=== PATIENT | male | born 1980 | race Caucasian/White ===

== ENCOUNTER 2019-01-24 06:35 | Day surgery (SDC) | payer OTHER ==
[~2019-01-24 06:35] MED LIST: Buffered Lidocaine 1% SYRIN* 1 ML/SYRINGE INTRADERM ONE; Lactated Ringers 1000 ML Bag* 1,000 ML IV SCH
[2019-01-24] MEDS ORDERED: Bupivacaine 0.25% SDV* 30 ML ONE (09:45)
[2019-01-24] MEDS ORDERED: ceFAZolin 2 GM in NS PREMIX(*) 2 GM/100 ML BAG IVPB ONE (09:49)
[2019-01-24] MEDS ORDERED: Midazolam* 1 MG/ML 5 ML VIAL (5 MG) ONE (09:54)
[2019-01-24] MEDS ORDERED: fentaNYL* 50 MCG/ML 2 ML VIAL (100 MCG VIAL) ONE (09:55)
[2019-01-24] MEDS ORDERED: Naloxone* 0.4 MG/ML 1 ML VIAL IV PRN (10:42)
[2019-01-24 11:40] VITALS: BP 108/73
--- NOTE | 2019-01-24 12:54 | OP ---
DATE OF OPERATION: 01/24/19 - [facility] DATE OF : 76 SURGEON: Kameron Grijalva MD. PATIENT'S LIBRARIAN: KEN Dexter. ANESTHESIOLOGIST: Dr. Mayfield. ANESTHESIA: Local MAC. PRE-OP DIAGNOSIS: Right volar wrist ganglion cyst. POST-OP DIAGNOSIS: Right volar wrist ganglion cyst. OPERATIVE PROCEDURE: Excision of right volar wrist ganglion cyst. 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 INDICATIONS: Nigel has a volar wrist ganglion cyst. It is large and symptomatic. He want to have it excised. We discussed the risks and benefits including the risk of radial artery injury. He understood this, he wished to proceeded. ESTIMATED BLOOD LOSS: 2 mL. COMPLICATIONS: None. FINDINGS: See above and below. DESCRIPTION OF PROCEDURE: Nigel was seen in the preoperative holding area. The correct side, site, and procedure were identified. We came back to the operating room where the arm was prepped and draped in the usual fashion and time-out was performed. The arm was exsanguinated with the Esmarch and the tourniquet was inflated to 250 mmHg. I had already infiltrated 0.25% Marcaine in the operative area. I then made lazy S-type incision over the cyst. Dissection was carried down and I began to perform marginal excision of the cyst. Cyst was identified emanating through the antebrachial fascia. I released some of that proximally and exposed the cyst proximally, and on the undersurface of the cyst, the radial artery was adherent to the cyst. I then moved from proximal to distal releasing the cyst from the radial artery. As I came down towards the radiocarpal joint, I noted that the radial artery bifurcated into the continuation of the radial artery out through the snuffbox and into the very prominent volar carpal branch. The cyst was emanating from a stalk that was emanating just in the Y of the bifurcation. I had to separate out and cauterize the venae comitantes. The stalk of the cyst was then tracked down to the volar radiocarpal joint where it was amputated. After I had done that, I carefully protected the radial artery while we cauterized where the cyst did come off the wrist capsule. After I cauterized the area, we irrigated out the wound. Skin was closed with 4-0 nylon suture. Wounds were dressed and a volar wrist splint was applied. He was taken to the recovery room in stable condition. Hand pinked up immediately upon tourniquet deflation. [id number] #: [id number] [place]
== END 2019-01-24 11:17 | disposition home or self-care (01) ==
LOC: OREAST 06:35
PROVIDERS: ATTEND Orthopaedic Surgery Hand Surgery
DX: M67.431 Ganglion, right wrist (principal); J45.909 Unspecified asthma, uncomplicated; E78.5 Hyperlipidemia, unspecified; F41.8 Other specified anxiety disorders
CPT/HCPCS: 88304; J0690; J2250; J3010